=== PATIENT | male | born 1995 | race Hispanic/Latino ===

== ENCOUNTER 2017-06-05 12:35 | Emergency (ER) | payer OTHER, SELFPAY ==
[2017-06-05] MEDS ORDERED: Lidocaine 1% 20 ML MDV ONE (13:00)
--- NOTE | 2017-06-05 13:59 | RAD ---
3 VIEWS NASAL BONES: Date: 06/05/17 COMPARISON: None. HISTORY: Trauma. Nasal pain. FINDINGS: There is a nondisplaced transverse fracture involving the inferior aspect of the bilateral nasal bone s. Probable overlying laceration noted. Imaged paranasal sinuses appear grossly unremarkable on front al imaging. IMPRESSION: Nondisplaced nasal bone fractures. POS: [facility]
== END 2017-06-05 14:37 | disposition home or self-care (01) ==
LOC: SCSER 12:35
DX: S02.2XXA Fracture of nasal bones, initial encounter for closed fracture (principal); F90.9 Attention-deficit hyperactivity disorder, unspecified type; F17.210 Nicotine dependence, cigarettes, uncomplicated; W50.0XXA Accidental hit or strike by another person, initial encounter
CPT/HCPCS: 12011; 70160; J2001

== ENCOUNTER 2018-01-02 18:10 | Emergency (ER) | payer SELFPAY ==
[2018-01-02 18:50] LABS: Bilirubin Moderate (Negative); Blood, Urine Trace (Negative); Glucose, Urine (Dipstick) Negative (Negative); Leukocyte Moderate (Negative); Nitrite Negative (Negative); Protein, Urine (Dipstick) 100 mg/dL (Neg-Trace); pH, Urine 6.5 (5.0-9.0)
[2018-01-02 18:57] LABS: Clarity Hazy (Clear)
[2018-01-02 18:58] LABS: Other Microscopic Description Less than 2 mL rec'd; Specific Gravity, Urine 1.036 (1.002-1.036)
[2018-01-02 19:00] LABS: Bacteria/HPF None Seen HPF (None Seen); Hyaline Casts/LPF NONE SEEN LPF (0-3 Hyaline); RBC/HPF 0-3 HPF (0-3); Squamous Epithelial 0-3 HPF (0-3); Transitional Epithelial 0-3 HPF (0-3)
[2018-01-02] MEDS ORDERED: Azithromycin 250 MG TAB ONE (19:50)
[2018-01-02] MEDS ORDERED: Lidocaine 2% PF 5 ML VIAL ONE (19:50)
[2018-01-02] MEDS ORDERED: cefTRIAXone\\ROCEPHIN 250 MG VIAL ONE (19:50)
== END 2018-01-02 20:05 | disposition home or self-care (01) ==
LOC: ERS 18:10
DX: N34.1 Nonspecific urethritis (principal); F90.9 Attention-deficit hyperactivity disorder, unspecified type; F17.210 Nicotine dependence, cigarettes, uncomplicated
CPT/HCPCS: 81003; 81015; 87086; 87491; 87591; 96372; J0696; J2001

== ENCOUNTER 2023-07-07 23:09 | Emergency (ER) | payer SELFPAY ==
[2023-07-08] MEDS ORDERED: Ondansetron PF 4 MG/2 ML Vial ONE (00:30)
[2023-07-08 00:47] LABS: #Basophils 0.1 thou/uL (0.0-0.2); #Monocytes 0.8 thou/uL (0.11-0.59); #Neutrophils 9.9 thou/uL (1.40-6.50); %Basophils 0.5 % (0.0-1.0); %Eosinophils 0.1 % (0.0-10.0); %Lymphocytes 13.1 % (21.0-51.0); %Monocytes 6.6 % (0.0-10.0); %Neutrophils 79.5 % (42.0-75.0); Hematocrit 45.6 % (42.0-52.0); Hemoglobin 15.8 g/dL (14.0-18.0); Mean Corpuscular HGB CONC 34.6 g/dL (32.0-36.0); Mean Corpuscular Hemoglobin 29.5 pg (27.0-31.0); Mean Corpuscular Volume 85.2 fl (78.0-98.0); Mean Platelet Volume 10.7 fL (7.4-10.4); Platelet Count 244 10x3/uL (130-400); RBC Distribution Width 13.1 % (11.5-14.5); Red Blood Cell (RBC) Count 5.35 mill/uL (4.70-6.10); White Blood Cell (WBC) Count 12.4 10x3/uL (4.8-10.8)
[2023-07-08 01:08] LABS: ALT (SGPT) 20 U/L (8-55); AST (SGOT) 37 U/L (5-34); Albumin 4.5 g/dL (3.5-5.0); Alkaline Phosphatase 58 U/L (40-110); Anion Gap 15 mmol/L (10-20); BUN (Urea Nitrogen) 12 mg/dL (8.9-20.6); Bilirubin, Total 0.5 mg/dL (0.2-1.2); Calc. Creatinine Clearance 0 mL/min (70-130); Calcium 9.6 mg/dL (7.8-10.44); Carbon Dioxide 26 mmol/L (22-29); Chloride 98 mmol/L (98-107); Estimated GFR 123; Globulin 3.2 g/dL (2.4-3.5); Glucose 112 mg/dL (70-105); Lipase 20 U/L (8-78); Potassium 3.3 mmol/L (3.5-5.1); Protein, Total 7.7 g/dL (6.0-8.3); Sodium 136 mmol/L (136-145)
[2023-07-08] MEDS ORDERED: Amoxicillin/Potassium Clav 875 MG TAB ONE (01:34)
[2023-07-08] MEDS ORDERED: Boostrix 0.5 ML (Tdap) VIAL (>/=7 yrs of age) ONE (01:35)
[2023-07-08] MEDS ORDERED: Haloperidol Lactate 5 MG/ML VIAL ONE (01:43)
== END 2023-07-08 02:13 | disposition home or self-care (01) ==
LOC: ERS 23:09
DX: S91.052A Open bite, left ankle, initial encounter (principal); S91.012A Laceration without foreign body, left ankle, initial encounter; R11.2 Nausea with vomiting, unspecified; Z23 Encounter for immunization; W54.0XXA Bitten by dog, initial encounter; F17.210 Nicotine dependence, cigarettes, uncomplicated
CPT/HCPCS: 36415; 71045; 80053; 83690; 85025; 90715; 96361; 96374; 96375; J1630; J2405